=== PATIENT | female | born 1995 | race Caucasian/White ===

== ENCOUNTER 2016-04-19 23:05 | Emergency (ER) | payer BC ==
[~2016-04-19] VITALS: Ht 154.9 cm; Wt 87.1 kg
[~2016-04-19 23:05] MED LIST: ADVIN25050 INH; ALBINS/ INH; ALBUAER2 INH; AUGMENTIN PO; CETI10TA84 PO; FLNIN NAE; PRED20TA PO; PSEU30TA20 PO; SNGCH5 PO; [UNRECOGNIZED DRUG - CODE]
[2016-04-19 23:09] VITALS: Ht 154.9 cm; Wt 87.1 kg
[2016-04-19 23:12] VITALS: TEMP 36.6; O2SAT 93
--- NOTE | 2016-04-20 | EMERGENCY ROOM VISIT NOTE ---
ED Visit Note First contact with patient: 23:15 CHIEF COMPLAINT: Wrist injury HISTORY OF PRESENT ILLNESS: This 20-year-old patient presents to the emergency department complaining of pain in the right wrist after lifting heavy equipment and catching a ladder. The patient is able to move their wrist. The patient states the pain is throbbing and 4/10. No laceration, no weakness. Pain radiates from her thumb up to her elbow. No numbness or tingling. The patient denies any other injury. The patient is able to move their fingers and elbow without difficulty. The patient has had a previous fracture to this wrist. The patient has taken nothing for the pain. REVIEW OF SYSTEMS: A 6 system review of systems was performed with positives and pertinent negatives in the HPI. ALLERGIES: Reviewed MEDICATIONS: cat dander, reviewed PMH: Asthma SOCIAL HISTORY: No drug use PHYSICAL EXAM: Vital Signs: Reviewed Nurse's notes, vital signs stable. GENERAL : Pleasant female, in no acute distress, but appears to be in pain, well- developed, well-neurished. NEURO: Alert and oriented to person place and time. Normal sensation to light and sharp touch. MUSCULOSKELETAL: There is no deformity of the right wrist. There is tenderness and edema over and enlargement at the radial styloid at the first dorsal compartment, Pain at the radial styloid with active and passive stretching of the thumb tendons over the radial styloid in thumb flexion. There is mild snuff box tenderness. Range of motion is intact. There is no tenderness of the elbow, hand or fingers. Jack Setter strength 5/5. Radial pulse 2+. SKIN: Normal and intact. The hand is warm and well perfused with capillary refill less than 2 seconds. EMERGENCY DEPARTMENT COURSE: I examined the patient. An X-ray of the right wrist was reviewed by myself and my attending and showed no fracture. A thumb spica splint was placed under my direction and the position was satisfactory. Neurovascular status rechecked and intact. Work paperwork is filled out for patient and given back. Patient was advised to follow-up with orthopedics if symptoms persist in a week or here in the ER sooner for severe pain, numbness, tingling, worsening signs or symptoms or as needed. The patient was discharged home in good condition. DIAGNOSIS: Right forearm, de Quervain's DISCHARGE INSTRUCTIONS & TREATMENT: Wear the wrist splint for one week until the pain subsides. Do not have it so tight that you cannot feel your fingers. Ibuprofen(Motrin, Advil) may be used for fever or pain. Use 600mg every six hours as needed. Take with food. Avoid using more than 2400mg in a 24 hour period. Do not use 2400mg per day for more than three consecutive days without physician direction. Prolonged inappropriate use can lead to stomach upset or ulcers. This medication can be taken if you need to drive, work, or perform activities which may be dangerous when taking narcotic pain medication. (AND/OR) Acetaminophen(Tylenol) may be used for fever or pain. Use 1000mg every six hours as needed. Avoid using more than 3000mg in a 24 hour period. This medication can be taken if you need to drive, work, or perform activities which may be dangerous when taking narcotic pain medication. Ice compresses for 20 minutes at a time four times daily for 2-3 days. Continue current medications. Return to the ER immediately for any numbness, tingling, severe pain, extreme swelling in the extremity or as needed. Call your orthopedics in 5-7 days if symptoms persist to arrange follow up for your injury. Current/Historical Medications Scheduled , 500 MG PO BID Albuterol (Ventolin), 2 PUFFS INH QID PRN Albuterol Sulf (Proventil 0.083% 2.5MG/3ML), 2.5 MG INH Q3HR PRN Cetirizine (Zyrtec), 10 MG PO DAILY Fluticasone Prop/Salmeterol (Advair Diskus 250/50 Mcg *), 1 PUFF INH BID Fluticasone Propionate (Flonase Nasal [place] *), 1 SPRAY GINGER BID Montelukast Sod (Singulair Chewable *), 5 MG PO DAILY Prednisone (Prednisone), 0 PO DAILY Pseudoephedrine (Sudafed), 30 MG PO DAILY Miscellaneous Medications [Reviewed05/02/09] Allergies Coded Allergies: Cat Dander (Unverified Allergy, Mild, 05/02/09) Dust Mite Extract (Unverified Allergy, Mild, 05/02/09) No Known Allergies (Verified , 01/19/06) Vital Signs Date Time Temp Pulse Resp B/P Pulse Ox O2 Delivery O2 Flow Rate FiO2 04/19/16 23:12 36.6 67 18 154/84 93 04/19/16 23:09 36.6 67 18 154/84 93 Room Air Laboratory Results Test 04/19/16 23:34 Urine Test NEG (NEG) Departure Information Referrals Richa Bach PA-C (PCP) Patient Instructions [facility]
[2016-04-20 00:07] VITALS: BP 123/82; PULSE 92; O2SAT 96
--- NOTE | 2016-04-20 06:01 | DIAGNOSTIC IMAGING REPORT ---
RIGHT WRIST W/NAVICULAR MIN 3 VIEWS CLINICAL HISTORY: right, pain Right pain COMPARISON: None. DISCUSSION: Tiny avulsion from the ulnar styloid. This is well-corticated is considered old. All remaining osseous structures are unremarkable. No evidence for acute fracture or dislocation. There is no evidence for soft tissue swelling. IMPRESSION: Negative study. Electronically signed by: Alfredo Atwood M.D. 04/20/2016 6:00 AM Dictated Date/Time: 04/20/2016 5:59 AM
[2016-08-07] MEDS ORDERED: MEDR10TA PO (07:04)
[2016-11-26] MEDS ORDERED: PRED10TA PO (07:06)
== END 2016-04-20 00:08 | disposition home or self-care (01) ==
LOC: C.EDB 23:06 → C.EDC 04-20 00:08
DX: M65.4 Radial styloid tenosynovitis [de Quervain] (principal); J45.909 Unspecified asthma, uncomplicated; Z79.899 Other long term (current) drug therapy; Z91.09 Other allergy status, other than to drugs and biological substances

== ENCOUNTER 2016-11-28 06:40 | Emergency (ER) | payer BC, OTHER ==
[~2016-11-28] VITALS: Ht 154.9 cm; Wt 102.5 kg
[~2016-11-28 06:40] MED LIST changes: +MEDR10TA PO; +PRED10TA PO
[2016-11-28 06:43] VITALS: TEMP 36.7; Ht 154.9 cm; Wt 102.5 kg
[2016-11-28] MEDS ORDERED: LEVO-105 PO (07:03)
[2016-11-28] MEDS ORDERED: VNTHFA/IN INH (07:03)
[2016-11-28] MEDS ORDERED: MAGNESIUM SULFATE 1GM / D5W 1 GM BAG IV STA (07:04)
[2016-11-28] MEDS ORDERED: SODIUM CHLORIDE 0.9% 1000ML 1,000 ML IV STA (07:04)
--- NOTE | 2016-11-28 07:10 | EMERGENCY ROOM VISIT NOTE ---
History Report prepared by Hilaria: Mitra Zuniga Under the Supervision of: Dr. Simon Landry M.D. First contact with patient: 06:56 Chief Complaint: RESPIRATORY PROBLEMS Stated Complaint: ASTHMA ATTACK Nursing Triage Summary: History of asthma. Cough and cold symptoms started thursday, went to doctor and was prescribed prednisone. Also given nebulizer treatment. No improvement with prednisone. Productive cough of white sputum. Expiratory wheezes bilaterally. History of Present Illness The patient is a 21 year old female who presents to the Emergency Room with complaints of a persistent cough that began on Thursday. She currently rates her discomfort as a 5/10 in severity. The patient states that she has a history of asthma, noting that she has been hospitalized in the past for her symptoms. She states that on Thursday she went to her PCP's office, noting that she was started on Prednisone. The patient states that the prednisone has not helped her symptoms. She additionally reports congestion. The patient states that she developed a low-grade fever last evening that she measured around 100 degrees Fahrenheit. She states that she has been bringing up clear sputum. The patient reports diaphoresis. She states that she used her inhaler four times yesterday and her nebulizer. The patient states that her Prednisone is a taper dose. She reports chest tightness. The patient states that she has vomited after a coughing fit. She denies any nausea. The patient reports diarrhea over the past several days. Source of History: patient Onset: Thursday Position: other (global) Symptom Intensity: 5/10 Quality: other (cough) Timing: other (persistent) Associated Symptoms: + fevers, + diaphoresis, + chest pain (tightness), + vomiting, + diarrhea, No nausea Review of Systems See HPI for pertinent positives and negatives. A total of ten systems were reviewed and were otherwise negative. Past Medical & Surgical Medical Problems: (1) Asthma (2) Bronchitis (3) Pneumonia (4) Stomach ulcer Family History Heart disease Hypertension Lung disease Social History Smoking Status: Current Every Day Smoker Alcohol Use: none Marital Status: in relationship Housing Status: lives with significant other Occupation Status: employed Current/Historical Medications Scheduled Cetirizine (Zyrtec), 10 MG PO DAILY Levonorgestrel & Eth Estradiol (Altavera), 1 TAB PO DAILY Medroxyprogesterone (Provera), 10 MG PO DAILY Prednisone Tab (Prednisone), 10 MG PO UD Scheduled PRN Albuterol Hfa (Ventolin Hfa), 2 PUFFS INH Q6H PRN for Wheezing Albuterol Sulf (Proventil 0.083% 2.5MG/3ML), 2.5 MG INH Q4 PRN for Wheezing Allergies Coded Allergies: Cat Dander (Unverified Allergy, Mild, 05/02/09) Dust Mite Extract (Unverified Allergy, Mild, 05/02/09) No Known Allergies (Verified , 01/19/06) Physical Exam Vital Signs Date Time Temp Pulse Resp B/P (MAP) Pulse Ox O2 Delivery O2 Flow Rate FiO2 11/28/16 13:00 102 20 169/99 92 11/28/16 12:13 118 97 Room Air 11/28/16 10:52 86 17 131/71 93 Room Air 11/28/16 08:48 94 17 160/89 95 Room Air 11/28/16 08:15 82 11/28/16 08:01 Room Air 11/28/16 08:01 75 18 155/90 99 Nebulizer 11/28/16 07:36 91 18 99 Room Air 11/28/16 06:51 Room Air 11/28/16 06:43 36.7 90 18 152/89 95 Room Air Physical Exam GENERAL: Awake, alert, uncomfortable-appearing, in no distress HENT: Normocephalic, atraumatic. Dry mucous membranes. EYES: Normal conjunctiva. Sclera non-icteric. NECK: Supple. No nuchal rigidity. FROM. No JVD. RESPIRATORY: Scattered wheezes throughout with mild rhonchi at the bases. CARDIAC: Regular rate, normal rhythm. Extremities warm and well perfused. Pulses equal. ABDOMEN: Soft, non-distended. No tenderness to palpation. No rebound or guarding. No masses. RECTAL: Deferred. MUSCULOSKELETAL: Chest examination reveals no tenderness. The back is symmetrical on inspection without obvious abnormality. There is no CVA tenderness to palpation. No joint edema. LOWER EXTREMITIES: Calves are equal size bilaterally and non-tender. No edema. No discoloration. NEURO: Normal sensorium. No sensory or motor deficits noted. SKIN: No rash or jaundice noted. Medical Decision & Procedures ER Provider Diagnostic Interpretation: X-ray: Per my interpretation, radiologist review. CHEST ONE VIEW PORTABLE CLINICAL HISTORY: Chest pain. COMPARISON STUDY: Chest radiograph January 03, 2009. FINDINGS: Lung volumes are mildly diminished. This likely reflects a hypoventilatory study. Cardiac size is normal. There is no pneumothorax or pleural effusion. There is no evidence of pulmonary edema. Slight increased bibasilar markings likely reflect normal vessels or atelectasis. IMPRESSION: Hypoventilatory study. No acute findings identified. Electronically signed by: Philipp Talamantes M.D. 11/28/2016 8:04 AM Dictated Date/Time: 11/28/2016 8:03 AM Laboratory Results 11/28/16 07:25 Red Blood Count 4.47, Mean Corpuscular Volume 93.7, Mean Corpuscular Hemoglobin 32.4, Mean Corpuscular Hemoglobin Concent 34.6, Mean Platelet Volume 9.9, Neutrophils (%) (Auto) 56.6, Lymphocytes (%) (Auto) 33.7, Monocytes (%) (Auto) 8.2, Eosinophils (%) (Auto) 0.8, Basophils (%) (Auto) 0.5, Neutrophils # (Auto) 6.16, Lymphocytes # (Auto) 3.66, Monocytes # (Auto) 0.89, Eosinophils # (Auto) 0.09, Basophils # (Auto) 0.05 11/28/16 07:25 Test 11/28/16 07:25 White Blood Count 10.87 K/uL (4.8-10.8) Red Blood Count 4.47 M/uL (4.2-5.4) Hemoglobin 14.5 g/dL (12.0-16.0) Hematocrit 41.9 % (37-47) Mean Corpuscular Volume 93.7 fL (80-100) Mean Corpuscular Hemoglobin 32.4 pg (25-34) Mean Corpuscular Hemoglobin Concent 34.6 g/dl (32-36) Platelet Count 370 K/uL (130-400) Mean Platelet Volume 9.9 fL (7.4-10.4) Neutrophils (%) (Auto) 56.6 % Lymphocytes (%) (Auto) 33.7 % Monocytes (%) (Auto) 8.2 % Eosinophils (%) (Auto) 0.8 % Basophils (%) (Auto) 0.5 % Neutrophils # (Auto) 6.16 K/uL (1.4-6.5) Lymphocytes # (Auto) 3.66 K/uL (1.2-3.4) Monocytes # (Auto) 0.89 K/uL (0.11-0.59) Eosinophils # (Auto) 0.09 K/uL (0-0.5) Basophils # (Auto) 0.05 K/uL (0-0.2) RDW Standard Deviation 41.7 fL (36.4-46.3) RDW Coefficient of Variation 12.2 % (11.5-14.5) Immature Granulocyte % (Auto) 0.2 % Immature Granulocyte # (Auto) 0.02 K/uL (0.00-0.02) Anion Gap 6.0 mmol/L (3-11) Est Creatinine Clear Calc Drug Dose 112.1 ml/min Estimated GFR () 109.6 Estimated GFR (Non- 94.6 BUN/Creatinine Ratio 12.4 (10-20) Calcium Level 9.3 mg/dl (8.5-10.1) Laboratory results reviewed by me Medications Administered Medications (Trade) Dose Ordered Sig/Kassy Route Start Time Stop Time Status Last Admin Dose Admin Sodium Chloride 1,000 ml @ 999 mls/hr Q1H1M STAT IV 11/28/16 07:04 11/28/16 08:04 DC 11/28/16 07:52 999 MLS/HR Albuterol/ Ipratropium (Duoneb) 12 ml ONE ONCE INH 11/28/16 07:15 11/28/16 07:16 DC 11/28/16 07:36 12 ML Prednisone (PredniSONE TAB) 60 mg NOW STAT PO 11/28/16 07:04 11/28/16 07:08 DC 11/28/16 07:48 60 MG Magnesium Sulfate (Magnesium Sulfate) 2 gm NOW STAT IV 11/28/16 07:04 11/28/16 07:08 DC 11/28/16 07:51 2 GM Albuterol/ Ipratropium (Duoneb) 3 ml NOW STAT INH 11/28/16 11:35 11/28/16 11:38 DC 11/28/16 11:48 3 ML ED Course 0658: The patient was evaluated in room A3. A complete history and physical exam was performed. 0704: Ordered Magnesium Sulfate 2 gm IV, Prednisone 60 mg PO, Sodium Chloride 1000 ml @ 999 mls/hr IV. 0715: Ordered DuoNeb 12 ml INH. 0924: I reevaluated the patient and she is resting more comfortably. She is moving air much easier at this time. I discussed the exam findings with her at this time. 1129: I reevaluated the patient and she is resting comfortably. She will receive another DuoNeb. 1135: Ordered DuoNeb 3 ml INH 1240: The patients ambulatory trial with pulse ox was 97%, the patient feels comfortable going home. She will be discharged shortly. Medical Decision Triage Nursing notes reviewed. The patient's presentation and history were concerning for Asthma exacerbation, bronchitis, pneumonia, TB, pericarditis. I reviewed the patient's past medical history, medications, and the nursing notes as described above. Patient is a 21-year-old woman with a past medical history of asthma and prior admissions for the same who presents emergency Department with worsening cough congestion and wheezing, shortness of breath since Thursday which she saw her PCP was prescribed a prednisone taper. History of present illness. On arrival the patient is uncomfortable but in no acute distress. He has diffuse wheezes as well as scattered rhonchi at the bases. Considering patient has been worsening while on steroids and reporting fevers and chills will check labs, fluid hydration and mag for additional bronchodilation with duo nebs and steroids. Patient reports that she feels that if she does not improve significantly with the first treatment that this is probably an instance where she should be admitted. CXR negative. WBC 10.8 but in setting of being on prednisone. Patient feeling improved after initial continuous neb. Air movement improved. Observed additional 3 hours and continued to feel improved. Thus given neb and ambulatory trial with sats >97%. Thus patient preferring d/c. Patient reports that she lives with 2 cats that she feels are her triggers when she is already sick. Thus, Patient will stay at her parent's hous over the weekend. Findings, trigger avoidance, and plan for follow-up reviewed with patient. Patient agreeable and d/c'd per discharge instructions. Medication Reconcilliation Current Medication List: was personally reviewed by me Blood Pressure Screening Patient's blood pressure: Elevated blood pressure Blood pressure disposition: Elevated BP felt to be situational, Did not require urgent referral Impression Primary Impression: Asthma exacerbation Scribe Attestation The scribe's documentation has been prepared under my direction and personally reviewed by me in its entirety. I confirm that the note above accurately reflects all work, treatment, procedures, and medical decision making performed by me. Departure Information Dispostion Home / Self-Care Referrals Richa Bach PA-C (PCP) Forms HOME CARE DOCUMENTATION FORM, IMPORTANT VISIT INFORMATION, WORK / SCHOOL INSTRUCTIONS Patient Instructions Asthma - [facility], Asthma Control Triggers Allergens, My [facility] Additional Instructions Please follow up with your primary care physician in the next 1-3 days for re- evaluation. You likely have an asthma exacerbation. Otherwise, your exam, chest x-ray, and lab results did not show signs of an emergent condition at this time. Continue your prednisone taper. Avoid asthma triggers such as your cats. Take your inhaler or nebulizer every 4 hours scheduled for the next 48 hours and then as needed thereafter. You may be excused from work until Thursday. If improved and cleared by your doctor on Thursday you may return to work on Thursday. Return to the emergency department for worsening symptoms as described in the accompanying instructions.
[2016-11-28] MEDS ORDERED: ALBUT/IPRATROP 3MG/0.5MG NEB 3 ML VIAL INH ONE (07:15)
[2016-11-28 07:36] VITALS: PULSE 91; O2SAT 99
[2016-11-28 07:41] LABS: BASO % 0.5 %; BASO ABS # 0.05 K/uL (0-0.2); COMPLETE YES; EOS % 0.8 %; HEMATOCRIT 41.9 % (37-47); IG% 0.2 %; LYMPH % 33.7 %; LYMPH ABS # 3.66 K/uL (1.2-3.4); MEAN CELL VOLUME 93.7 fL (80-100); MEAN CORPUSCULAR HEMOGLOBIN 32.4 pg (25-34); MEAN CORPUSCULAR HGB CONC 34.6 g/dl (32-36); MEAN PLATELET VOLUME 9.9 fL (7.4-10.4); MONO % 8.2 %; NEUT % 56.6 %; PLATELET COUNT 370 K/uL (130-400); RED BLOOD COUNT 4.47 M/uL (4.2-5.4); WHITE BLOOD COUNT 10.87 K/uL (4.8-10.8)
[2016-11-28 07:59] LABS: BUN/CREATININE RATIO 12.4 (10-20); CALCIUM 9.3 mg/dl (8.5-10.1); CREATININE 0.88 mg/dl (0.60-1.20); POTASSIUM 3.5 mmol/L (3.5-5.1)
--- NOTE | 2016-11-28 08:05 | DIAGNOSTIC IMAGING REPORT ---
CHEST ONE VIEW PORTABLE CLINICAL HISTORY: Chest pain. COMPARISON STUDY: Chest radiograph January 03, 2009. FINDINGS: Lung volumes are mildly diminished. This likely reflects a hypoventilatory study. Cardiac size is normal. There is no pneumothorax or pleural effusion. There is no evidence of pulmonary edema. Slight increased bibasilar markings likely reflect normal vessels or atelectasis. IMPRESSION: Hypoventilatory study. No acute findings identified. Electronically signed by: Philipp Talamantes M.D. 11/28/2016 8:04 AM Dictated Date/Time: 11/28/2016 8:03 AM
[2016-11-28] MEDS ORDERED: ALBUT/IPRATROP 3MG/0.5MG NEB 3 ML VIAL INH STA (11:35)
[2016-11-28 13:00] VITALS: BP 169/99; PULSE 102; O2SAT 92
== END 2016-11-28 13:03 | disposition home or self-care (01) ==
LOC: C.EDB 06:40 → C.EDA 13:03
DX: J45.901 Unspecified asthma with (acute) exacerbation (principal); F17.200 Nicotine dependence, unspecified, uncomplicated; Z87.19 Personal history of other diseases of the digestive system; Z79.899 Other long term (current) drug therapy; Z91.09 Other allergy status, other than to drugs and biological substances; Z82.49 Family history of ischemic heart disease and other diseases of the circulatory system